=== PATIENT | female | born 1945 | race Caucasian/White ===

== ENCOUNTER 2016-09-21 04:10 | Inpatient (IN) ==
[2016-09-21] MEDS ORDERED: SODIUM CHLORIDE 0.9% 1,000 ML IV STA (04:22)
[2016-09-21] MEDS ORDERED: ENOXAPARIN 100 MG/ML SYRINGE SUBCUT STA (04:22)
[2016-09-21] MEDS ORDERED: ONDANSETRON 4 MG/2 ML VIAL IV STA (04:22)
[2016-09-21] MEDS ORDERED: MORPHINE 2 MG/1 ML SYRINGE IV STA (04:22)
[2016-09-21] MEDS ORDERED: ASPIRIN 325 MG TABLET PO STA (04:22)
[2016-09-21] MEDS ORDERED: NITROGLYCERIN 2% OINT 1 INCH/GM PACK TOP STA (04:22)
[2016-09-21] MEDS ORDERED: TICAGRELOR 90 MG TABLET ONE ×2 (04:48)
[2016-09-21] MEDS ORDERED: ENOXAPARIN 80 MG/0.8 ML SYRINGE SUBCUT ONE (04:50)
[2016-09-21] MEDS ORDERED: NITROGLYCERIN 2% OINT 1 INCH/GM PACK TOP ONE (04:50)
[2016-09-21] MEDS ORDERED: MORPHINE 2 MG/1 ML SYRINGE ONE (04:50)
[2016-09-21] MEDS ORDERED: ONDANSETRON 4 MG/2 ML VIAL ONE (04:50)
[2016-09-21] MEDS ORDERED: ENOXAPARIN 40 MG/0.4 ML SYRINGE ONE (04:51)
--- NOTE | 2016-09-21 04:51 | Emergency Department Note ---
Arrival - Arrival Chief Complaint: Chest Pain Stated Complaint: jaw pain, and under left arm is hurting ED Nursing Triage Note: Patient to triage. she states that last night before she went to bed that her left jaw was hurting. 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 Patient states when this happened she got really hot and was sweating. Mode of Arrival: Ambulatory Time Seen by Provider: 09/21/16 04:22 - History of Present Illness HPI Narrative: Patient presents complaining of chest pain which woke her this morning radiating into the left jaw. The patient also has some associated nausea with this. She states her mother and her father both had MIs. The patient's pain is a crushing pressure type pain. The pain in the jaw has gradually intensified on the left since onset of pain. The patient has no known heart problems. Allergies/Adverse Reactions: Allergies Allergy/AdvReac Type Severity Reaction Status Date / Time No Known Allergies Allergy Unverified 09/21/16 04:18 Review of System - Review of System 12 point system: reviewed and no additional remarkable complaints except as stated Medical,Surgical,& Family Hx - Medical History Cardio: No history of: Hypertension Endocrine: History of: Diabetes Mellitus (IDDM) - Family History Family History: Reports;: Family Diabetes (Everyone) - Social History Smoking Status: Never smoker Frequency of Alcohol Use: None Type of Drug Use: None Exam Physical Examination: General: Patient is well-developed and well-nourished with no acute distress noted. HEENT: The extraocular muscles are intact. Oropharynx is moist. There is no erythema or exudate. The tympanic membranes are shiny bilaterally. Neck: There is no adenopathy. Full range of motion is noted without pain. The trachea is midline. No JVD is present. Lungs: There is normal excursion of the chest with the lungs sounding clear bilaterally. No subcostal retractions are present. There is no point tenderness present. Heart: The heart has a regular rate and rhythm with no gallops or murmurs. Abdomen: The abdomen is nontender and nondistended with no rebound, guarding, or masses. Bowel sounds are normal. Back: The back demonstrates a normal appearance with no evidence of trauma. Genitourinary: Not examined. Extremities: The extremities demonstrate no clubbing, cyanosis, or edema. The visualized range of motion is normal. They appear atraumatic. Neuro: Cranial nerves II through XII are checked and intact. There is no focal motor or sensory deficit seen in the extremities. Skin: Skin is warm and dry with no evidence of rash. Vital Signs: Vital Signs Temperature 97.7 F 09/21/16 04:13 Pulse Rate 79 09/21/16 04:13 Respiratory Rate 10 L 09/21/16 04:13 Blood Pressure 134/87 09/21/16 04:13 O2 Sat by Pulse Oximetry 99 09/21/16 04:13 Course - Reevaluation(s) Reevaluation #1: Initial EKG performed at 420 demonstrated no changes. After I was talking to the patient in front of my eyes to monitor begin to show ST elevations I got a second EKG at 445 and this demonstrates inferior VT. This is in keeping with her very typical sounding anginal pain. Time: 04:51 - Consultations Consultation #1: Dr. Enrique was notified and will come see the patient. The labelling machine operator has been activated. Time: 04:51 Results - Labs CBC & BMP: 09/21/16 04:52 - Diagnostic Findings Procedure: Chest x-ray: image reviewed by me (No definite acute process. Old posterior right rib fracture incidentally noted) Disposition Clinical Impression: Acute inferior myocardial infarction Case discussed with: patient, patient's family Disposition: Disch To Home/Self Care Condition: Stable Time of Disposition: 04:52
[2016-09-21] MEDS ORDERED: ASPIRIN CHEW 81 MG TABLET PO STA (04:52)
[2016-09-21] MEDS ORDERED: HEPARIN 5,000 UNIT/1 ML VIAL IV ONE (04:52)
[2016-09-21] MEDS ORDERED: TICAGRELOR 90 MG TABLET PO STA (04:52)
[2016-09-21] MEDS ORDERED: ENOXAPARIN 30 MG/0.3 ML SYRINGE ONE (04:52)
[2016-09-21] MEDS ORDERED: ASPIRIN 325 MG TABLET ONE (04:59)
[2016-09-21] MEDS ORDERED: HEPARIN 5,000 UNIT/1 ML VIAL ONE ×2 (04:59→05:37)
[2016-09-21 05:04] LABS: Basophils % 0.3 % (0.0-0.8); Eosinophils # 0.2 10*3/uL (0.0-0.87); Eosinophils % 2.6 % (0.00-10.9); Hematocrit 38.9 VOL% (35.7-47.0); Immature Granulocytes % 0.5 %; Immature Granulocytes Absolute 0.05 #; Lymphocytes # 2.4 10*3/uL (1.4-4.0); Lymphocytes % 26.6 % (21.3-54.2); Mean Corpuscular HGB Conc 33.4 GM/DL (32-36); Mean Corpuscular Hemoglobin 32 PG (27-34); Mean Corpuscular Volume 94.2 FL (87-102); Mean Platelet Volume 11.3 FL (9.6-12.0); Monocytes # 0.8 10*3/uL (0.11-0.8); Monocytes % 8.9 % (1.7-12.7); Neutrophils # 5.6 10*3/uL (1.4-7.4); Neutrophils % 61.1 % (38.7-73.9); Platelet Count 226 T/CUMM (130-400); Red Blood Count 4.13 MC/CUMM (3.8-5.5); Red Cell Distribution Width 12.3 % (9.3-17.3); White Blood Count 9.1 T/CUMM (4-12)
[2016-09-21] MEDS: METOPROLOL TARTRATE 5 MG/5 ML VIAL IV SCH ×3 (05:05→05:15)
[2016-09-21] MEDS ORDERED: LIDOCAINE 1% 20 ML VIAL ONE (05:16)
[2016-09-21 05:24] LABS: D-Dimer 0.7 MG/L FEU; INR 0.9; PT Patient Result 9.5 SECS; Partial Thromboplastin Time 35.4 SECS (0-40)
[2016-09-21 05:25] LABS: Albumin 3.8 G/DL (3.4-5.0); Bilirubin,Total 0.9 MG/DL (0.2-1.0); Calcium 9.7 MG/DL (8.5-10.1); Magnesium 2.2 MG/DL (1.8-2.4); Osmolality,Calculated 291.4 MOS/KG (273-304); Potassium 3.7 MMOL/L (3.5-5.1); Total Protein 6.9 G/DL (6.4-8.3)
[2016-09-21] MEDS ORDERED: MIDAZOLAM 2 MG/2 ML VIAL ONE (05:32)
[2016-09-21] MEDS ORDERED: TIROFIBAN 5,000 MCG/100 ML PREMIX IV ONE (05:38)
[2016-09-21] MEDS ORDERED: TIROFIBAN 5,000 MCG/100 ML PREMIX IV SCH (05:51)
[2016-09-21] MEDS ORDERED: DEXTROSE 50% 25 GM/50 ML VIAL IV PRN (06:25)
[2016-09-21] MEDS ORDERED: MAGNESIUM SULF RIDER 4 GM in PREMIX 1 EACH IV PRN (06:25)
[2016-09-21] MEDS ORDERED: ACETAMINOPHEN 325 MG TABLET PO PRN (06:25)
[2016-09-21] MEDS ORDERED: ACETAMINOPHEN/CODEINE 300-30 MG TABLET PO PRN (06:25)
[2016-09-21] MEDS ORDERED: ZALEPLON 5 MG CAPSULE PO PRN (06:25)
[2016-09-21] MEDS ORDERED: GLUCAGON 1 MG VIAL IM PRN (06:25)
[2016-09-21] MEDS ORDERED: MAGNESIUM SULF RIDER 2 GM in PREMIX 1 EACH IV PRN (06:25)
[2016-09-21] MEDS: SODIUM CHLORIDE 0.9% 1,000 ML IV SCH ×2 (06:30→11:30)
--- NOTE | 2016-09-21 06:34 | History and Physical Update ---
Sedation H&P Update - History and Physical H&P was reviewed, the patient examined and there: are no changes in the patients condition since last H&P was completed. - Dictation Physical: refer to H&P completed by admitting physician - Physical Exam Mental Status: alert and oriented Heart: regular rate and rhythm Lung: clear to auscultation Abdomen: within normal limits Vitals: within normal limits - Sedation Plan for Sedation: minimal Patient Consent: Procedure disscussed with patient and patinet has consented., Risks and benefits were discussed with patient,including infection,, bleeding, injury to surrounding structures, seizure, temporary nerve, Patient understands and accepts potential risks/benefits and agrees to, proceed. ASA Class: II Airway Assessment: Class II: Soft palate, uvula, fauces visible
--- NOTE | 2016-09-21 06:34 | Cardiology History & Physical ---
Assessment and Plan - Time spent with patient Time spent with patient: Greater than 30 minutes (1) ST elevation myocardial infarction (STEMI) of inferior wall Status: Acute Assessment and plan: ER has given aspirin she comes 325 mg; heparin 4400 units, Lovenox 70 mg subcu, Brilinta 180 mg p.o. Emergently go to the Gyn Physician for left heart cath and possible PTCA or stent. Left heart cath and possible PTCA or stent were discussed with the patient. The risk of the procedure include but are not limited to a small risk of injury to the vessel, abnormal heart rhythm, stroke, heart attack, need for emergent surgery, contrast reaction, restenosis, or . The patient voices understanding, agrees with the plan, and desires to proceed with the heart catheterization. After the cath will check lipids and treat per guidelines. We will try to add a beta-fam and SILVESTRE inhibitor, if not contraindicated and she is not already on these. Current Visit: Yes (2) Diabetes Status: Acute Current Visit: Yes (3) Chronic renal insufficiency, stage II (mild) Status: Acute Current Visit: Yes (4) Hypertension Status: Acute Current Visit: Yes (5) Right rotator cuff tear Status: Acute Current Visit: Yes (6) Blood in stool Status: Acute Current Visit: Yes History of Present Illness Chief complaint: "I hurt my jaw and the left arm and the chest" times greater than an hour History of present illness: Ms. 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 She does have a strong family history coronary artery disease. She, late last night, early this morning began having left jaw and left inner arm and left chest pain. It persisted. She came to the emergency room. She was seen. Initially her EKG was normal. However, as her pain continued, the ER doctor noted on the monitor that she had ST elevation. Repeat EKG was done and she had an inferior ST elevation MT. The cath team was called for an inferior STEMI. She does not have exertional chest pain prior to this visit. No orthopnea, PND, edema, palpitations, syncope, cough, wheezing, or phlegm. Past medical history: Diabetes, hypertension Has had some blood in her stool, thinks it is a hemorrhoid. Her right shoulder has had a tear in her rotator cuff. It was diagnosed by MRI by Dr. Gail Schneider. She is being referred to Dr. Reyes. She is not interested in surgery very soon. soc hx--Does not smoke cigarettes or drink alcohol There is a family history of coronary disease in 2 brothers and a father. Also some diabetes. SPH, no, yes, yes and yes[prompted, good person]. Review of systems is remarkable for occasional blood in the stools. She has been seen by her housekeeper and laundry assistant for her eyes. They are okay. Because of a mild rising creatinine/reduced renal function, she is now off metformin. Initially her diabetes was more difficult to control. Now she is on insulin and is under better control. Allergies Allergy/AdvReac Type Severity Reaction Status Date / Time No Known Allergies Allergy Unverified 09/21/16 04:18 12 point system: reviewed and no additional remarkable complaints except as stated (A 12 point review of systems is negative except for as mentioned in HPI. ) Medical,Surgical,& Family Hx - Medical History Cardio: History of: Hypertension Endocrine: History of: Diabetes Mellitus (IDDM) - Family History Family History: Reports;: Family Diabetes (Everyone), Family Heart Disease - Social History Smoking Status: Never smoker Frequency of Alcohol Use: None Type of Drug Use: None Functional capacity: independent ambulation Cardiology Physical Exam - Constitutional Vitals: Vital Signs Temp Pulse Resp BP Pulse Ox 97.7 F 70 18 110/70 99 09/21/16 04:13 09/21/16 05:16 09/21/16 05:16 09/21/16 05:16 09/21/16 04:13 Intake and Output 09/20/16 09/20/16 09/21/16 15:59 23:59 07:59 Other: Weight 73.482 kg Patient Weight 09/21/16 23:59 Weight 73.482 kg Exam: HEENT: Pupils equal, reactive to light and accommodation Neck: NoJVD or bruit Lungs clear to auscultation Heart: Regular rhythm rate with normal S1 and S2. Apical S4 Abdomen: No hepatosplenomegaly Spine/extremities: No clubbing, cyanosis, or edema Neuro: Nonfocal Psych: No depression or anxiety Femoral pulses are 3-4+. Foot pulses are 2+. Result/EKG - Labs CBC & BMP: 09/21/16 04:52 09/21/16 04:52 Lab Results: I have reviewed the past 24 hour labs Labs: Laboratory Results - last 24 hr 09/21/16 09/21/16 09/21/16 04:52 04:52 04:52 WBC 9.1 RBC 4.13 Hgb 13.0 Hct 38.9 MCV 94.2 MCH 32 MCHC 33.4 RDW 12.3 Plt Count 226 MPV 11.3 Neut % (Auto) 61.1 Lymph % (Auto) 26.6 [place] % (Auto) 8.9 Eos % (Auto) 2.6 Baso % (Auto) 0.3 Neut # (Auto) 5.6 Lymph # (Auto) 2.4 [place] # (Auto) 0.8 Eos # (Auto) 0.2 Baso # (Auto) 0.0 Immature Gran % 0.5 Nucleated RBC % 0.0 Immature Gran # 0.05 Nucleated RBCs # 0.00 INR 0.9 PT Patient/Control Mix 9.5 D-Dimer, Quantitative 0.7 Circ Anticoag PTT 35.4 Sodium 140 Potassium 3.7 Chloride 106 Carbon Dioxide 22 Anion Gap 15.7 H BUN 25 H Creatinine 1.10 H GFR Calculation 51 BUN/Creatinine Ratio 22.00 H Glucose 267 H Calculated Osmolality 291.4 Calcium 9.7 Magnesium 2.2 Total Bilirubin 0.90 AST 38 H ALT 63 H Alkaline Phosphatase 125 H Total Protein 6.9 Albumin 3.8 Globulin 3.1 Albumin/Globulin Ratio 1.2 Lipase 348.0 - Diagnostic Findings Procedure: Chest x-ray: report reviewed by me - EKG EKG results: interpreted by me Quality Measures - VTE Contraindication to Pharmacological VTE Prophylaxis: High Risk of Bleeding
--- NOTE | 2016-09-21 06:37 | Operative Note ---
Date of procedure: 09/21/16 Procedure Preformed: Left heart cath Coronary angiography Left ventriculography Angiogram of the right femoral artery--done from the follow-through from the LV gram Aggrastat bolus and infusion Stent of the right coronary [id number]-aqqs-trrypdk stent, 3.0 x 23 mm Zions Alpine , after pre-dilating with a 2.0 x 15 mm NC trek Loading with Brilinta, 180 mg p.o.--done in the emergency room Angio-Seal of the right femoral artery-successful Surgeon / Physician: Damir Enrique Data Analysis Intern: Leila Young Post-op diagnosis: same (Inferior ST elevation [place], diabetes, hypertension) Findings: Impression: Subtotal stenosis, 95%, of the mid right coronary with FLAVIA grade II flow-the infarct related artery-with a trailing intracoronary thrombus Significant disease in a small diagonal of the LAD Otherwise mild disease in vessels Status post successful stent of the mid right coronary artery--drug-eluting stent, 3.0 x 23 mm Zions Alpine, after pre-dilating with a 2.0 x 15 mm NC trek Low normal global systolic function, LVEF is 50-55% Inferobasal minimal hypokinesis Moderate elevation of LVEDP, 26 mmHg Loading with Brilinta, 180 mg-done in the emergency room Aggrastat bolus and infusion-done for ACS/STEMI Angio-Seal right femoral artery-successful Plan/recommendations: The patient will have risk factors optimized. The patient will be on antiplatelet medications to include aspirin indefinitely and Plavix or Brilinta for at least a year. I will check lipids and treat per guidelines. I will add a low-dose of carvedilol, beta-fam, post [place]. Currently, her blood pressure is low enough and there is a question of renal dysfunction it we will hold on SILVESTRE inhibitor. It may be started later. Follow- up will be scheduled. Addenda: I saw the patient post-cath. the groin puncture site and distal pulse are stable. vital signs are stable and the patient will be observed closely overnight. Specimens: none sent Estimated blood loss: minimal Condition: other (Guarded) Anesthesia: local, conscious sedation Disposition: ICU
--- NOTE | 2016-09-21 07:04 | Cardiology Operative Report ---
Date of Procedure:: 09/21/16 Post-op diagnosis: same (Inferior ST elevation [place], diabetes, hypertension) Procedure: Date of procedure: 09/21/16 Procedure Preformed: Left heart cath Coronary angiography Left ventriculography Angiogram of the right femoral artery--done from the follow-through from the LV gram Aggrastat bolus and infusion Stent of the right coronary fgewzy-mofb-quppdpa stent, 3.0 x 23 mm Zions Alpine , after pre-dilating with a 2.0 x 15 mm NC trek Loading with Brilinta, 180 mg p.o.--done in the emergency room Angio-Seal of the right femoral artery-successful Surgeon / Physician: Damir Enrique Operations Specialists: Leila Young Post-op diagnosis: same (Inferior ST elevation [place], diabetes, hypertension) procedure: The patient was prepped and draped in usual manner. Entered the right femoral artery via the Seldinger technique. I used a sheath and then used a JL4 and engaged left coronary. Multiple views were taken. I then exchanged for a JR4. Multiple views of the right coronary were taken. The patient then underwent stenting of the right coronary-see intervention below. Aggrastat bolus and infusion was given . I then exchanged for an angled pigtail. I crossed the valve. Left ventricular end-diastolic pressures measured. Left ventriculography was done. Left ventricle pullback was done. The catheters were then removed from the patient. Please see the data sheets for the details of catheters used. Intervention: Cardiovascular surgery was available for any complications. The coronary intervention was done using a JR4 guiding catheter, 0.014 run through wire,, After predilatation with a 2.0 x 15 mm NC trek balloon, I then placed a 3.0 x 28 mm Zions Alpine coronary stent across the lesion. It was deployed. Angiogram of the artery after intervention was done. There was a good result.. Angiogram of the right femoral artery was done, as a follow-through from the aortogram/left ventriculogram. Angio-Seal was done. Patient was transferred to her room in ICU in satisfactory condition. Please see the cath report for details of the pressures and times. Complications: none Hemodynamic data: LVEDP was 26 mmHg. Angiographic data: The left main coronary was large and had minimal luminal irregularities. The left anterior descending artery was large. There is one major diagonal. That small diagonal had a 70% to 90% ostial narrowing. Otherwise, there are minimal luminal irregularities. The left circumflex system was moderate to large. It was 1 major obtuse marginal and 1 posterior lateral branches. there are minimal luminal irregularities in the circumflex The right coronary artery was large in size, dominant vessel with the PDA. There was a moderate sized post lateral branch. In the midportion, there was a 95% narrowing with a trailing intraluminal thrombus. There is FLAVIA grade II flow to that vessel. Otherwise, there was mild disease distal to that site, no more than 20% narrowing at one site. otherwise there were minimal luminal irregularities. After the intervention of the right coronary, with the PTCA, the thrombus is gone and there is no suggestion of distal embolization. There was a residual lesion. After placement of the stent there was a 0% residual and FLAVIA grade III flow. RODNEY left ventriculography revealed mildly reduced global/regional left ventricular systolic function. Overall ejection fraction was 50-55 %. There is no significant mitral regurgitation. Angiogram of the right femoral artery revealed the puncture site to be in a large vessel, above the bifurcation. It was suitable for Angio-Seal. Findings: Impression: Subtotal stenosis, 95%, of the mid right coronary with FLAVIA grade II flow-the infarct related artery-with a trailing intracoronary thrombus Significant disease in a small diagonal of the LAD Otherwise mild disease in vessels Status post successful stent of the mid right coronary artery--drug-eluting stent, 3.0 x 23 mm Yanci Solis, after pre-dilating with a 2.0 x 15 mm NC trek Low normal global systolic function, LVEF is 50-55% Inferobasal minimal hypokinesis Moderate elevation of LVEDP, 26 mmHg Loading with Brilinta, 180 mg-done in the emergency room Aggrastat bolus and infusion-done for ACS/STEMI Angio-Seal right femoral artery-successful Plan/recommendations: The patient will have risk factors optimized. The patient will be on antiplatelet medications to include aspirin indefinitely and Plavix or Brilinta for at least a year. I will check lipids and treat per guidelines. I will add a low-dose of carvedilol, beta-fam, post [place]. Currently, her blood pressure is low enough and there is a question of renal dysfunction it we will hold on SILVESTRE inhibitor. It may be started later. Follow- up will be scheduled. Addenda: I saw the patient post-cath. the groin puncture site and distal pulse are stable. vital signs are stable and the patient will be observed closely overnight. Specimens: none sent Estimated blood loss: minimal Condition: other (Guarded) Anesthesia: local, conscious sedation Disposition: ICU Additional CC's: Damir Tian Anesthesia: local, minimal conscious sedation Surgeon / Physician: Damir Enrique Operations Specialists: other Estimated blood loss: minimal Specimens: none sent Condition: other (Guarded) Disposition: ICU/CCU
[2016-09-21 07:22] LABS: Risk Ratio 3.25; VLDL CHOLESTEROL 36.6 MG/DL
[2016-09-21 07:32] LABS: Troponin I Only 0.034 NG/ML (0.00-0.045)
--- NOTE | 2016-09-21 08:15 | XRay Report ---
Portable chest. Indication: Chest pain. No prior study. The heart is normal in size. Calcified lymph nodes are seen in the left hilum. There is elevation of the left hemidiaphragm. There is mild atelectasis in the left lung base. The pulmonary vasculature is normal. There is mild fibrotic change noted bilaterally. There is a healed rib fracture on the right. Mild degenerative changes of the spinal column. Impression: Chronic lung changes. Left basilar atelectasis. PROCEDURE INTERPRETED AT [facility] DEPARTMENT OF RADIOLOGY Final Report Signed by: Dr. Sugey Castro
[2016-09-21] MEDS: ASPIRIN CHEW 81 MG TABLET PO SCH (09:07)
[2016-09-21] MEDS: TICAGRELOR 90 MG TABLET PO SCH ×2 (09:07→21:17)
[2016-09-21] MEDS: CARVEDILOL 3.125 MG TABLET PO SCH ×3 (09:07→20:53)
[2016-09-21] MEDS: INSULIN REGULAR 100 UNIT/ML SUBCUT SCH ×4 (09:08→20:53)
--- NOTE | 2016-09-21 10:08 | EKG Report ---
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
[2016-09-21] MEDS: DOBUTamine 500 MG/250 ML PREMIX IV SCH (16:46)
[2016-09-21 17:09] LABS: CKMB % 13.9 %
[2016-09-21 17:11] LABS: Troponin I Only 33.9 NG/ML (0.00-0.045)
--- NOTE | 2016-09-21 18:25 | EKG Report ---
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
[2016-09-22 00:25] LABS: Troponin I Only 23.5 NG/ML (0.00-0.045)
[2016-09-22] MEDS: CARVEDILOL 3.125 MG TABLET PO SCH ×4 (02:48→20:26)
[2016-09-22 05:31] LABS: Basophils % 0.2 % (0.0-0.8); Eosinophils # 0.1 10*3/uL (0.0-0.87); Eosinophils % 0.7 % (0.00-10.9); Hematocrit 32.4 VOL% (35.7-47.0); Immature Granulocytes % 0.3 %; Immature Granulocytes Absolute 0.03 #; Lymphocytes # 1.4 10*3/uL (1.4-4.0); Mean Corpuscular Hemoglobin 31 PG (27-34); Mean Platelet Volume 11.4 FL (9.6-12.0); Monocytes # 0.9 10*3/uL (0.11-0.8); Monocytes % 9.8 % (1.7-12.7); Neutrophils # 6.3 10*3/uL (1.4-7.4); Platelet Count 198 T/CUMM (130-400); Red Blood Count 3.52 MC/CUMM (3.8-5.5); Red Cell Distribution Width 12.7 % (9.3-17.3); White Blood Count 8.6 T/CUMM (4-12)
[2016-09-22 06:15] LABS: Calcium 8.5 MG/DL (8.5-10.1); Potassium 3.8 MMOL/L (3.5-5.1); Total Protein 5.6 G/DL (6.4-8.3)
--- NOTE | 2016-09-22 07:39 | EKG Report ---
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
[2016-09-22] MEDS: INSULIN REGULAR 100 UNIT/ML SUBCUT SCH ×4 (09:30→21:03)
[2016-09-22] MEDS: ASPIRIN CHEW 81 MG TABLET PO SCH (10:06)
[2016-09-22] MEDS: TICAGRELOR 90 MG TABLET PO SCH ×2 (10:06→21:00)
--- NOTE | 2016-09-22 18:25 | Cardiology Progress Note ---
Donell, Rosario Olmos RN, am scribing for, and in the presence of, Damir Enrique MD 18:22. Assessment and Plan - Time spent with patient Time spent with patient: Greater than 30 minutes (1) ST elevation myocardial infarction (STEMI) of inferior wall Status: Acute Assessment and plan: 71 year old female with PMHx including HTN, diabetes, hyperlipidemia presented with acute inferior ST elevation LA. Now s/p emergent successful PCI of 95% mid right coronary artery occlusion. At time of cath, also was noticed to have an diagonal small vessel with 70-90% ostial narrowing. Otherwise minimal luminal irregularities. Preserved EF with ejection fraction 50-55%. Without acute event overnight. No ectopy, sustained arrhythmia. Some hypotension, BP supported with low dose IV dobutamine. September 21, 2016: Plan/recommendations: The patient will have risk factors optimized. The patient will be on antiplatelet medications to include aspirin indefinitely and Plavix or Brilinta for at least a year. I will check lipids and treat per guidelines. I will add a low-dose of carvedilol, beta-fam, post LA. Currently, her blood pressure is low enough and there is a question of renal dysfunction it we will hold on SILVESTRE inhibitor. It may be started later. Follow- up will be scheduled. Addenda: I saw the patient post-cath. the groin puncture site and distal pulse are stable. vital signs are stable and the patient will be observed closely overnight. September 22, 2016 Plan/recommendation: the patient has had no more chest pain. Her blood pressure was borderline low so started on dobutamine. She probably has some RV infarction. Try to taper her off of dobutamine today, but her blood pressure is trending downward. Will restart the dobutamine, keep her in ICU, and give her normal saline at 150 cc an hour for 2 L. Possibly give her some fluids can overcome the RV infarct/hypotension. She has good LV function. I will restart some of her diabetes medicines. I check her lipids. Her LDL is mildly elevated but may be in from missing a dose or 2 of the atorvastatin. Will restart the atorvastatin at 40 mg p.o. nightly.. Would not use an SILVESTRE inhibitor at this point because of her hypotension. I conferred care with her nurse. Creatinine is okay post contrast. 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 Mcnamara observed closely in ICU overnight. She is s/p acute inferior ST elevation LA yesterday morning 09/21/16. Underwent emergent left heart catheterization with successful PCI of 95% stenosis of mid RCA using 3.0 x 23 mm Xience Alpine drug eluting stent. LV EF 50-55% with minimal inferoapical hypokinesis at time of cath. Borderline hypotension yesterday afternoon. IV Dobutamine infusion started, titrated down to 3 mcgs/kg/min this morning. SBP with some improvement this morning, ranging 105-115 mmHg. Sinus rhythm with HR 60s, no ectopy or overt arrhythmia. Some bradycardia, pulse mid to upper 50s. Labs reviewed. Troponin and CPK peaked yesterday afternoon at 33.9 & 503 respectively, and last biomarker levels with troponin 23.5 and CPK 401. Renal function is stable today with a creatinine of 1.0 noted. Awake and alert this morning. No CP, SOB overnight. Admits to some light nausea with no vomiting. Contributes nausea to not being able to eat with bedrest/NPO diet. RFA dsg removed and groin is soft with minimal bruising. No hematoma or femoral bruit appreciated. Distal pulses are present and palpable bilaterally. Instructed patient on groin precautions, and she verbalized understanding. Diet ordered this morning. Continue to observe closely in ICU. Exam (Progress Note) - Constitutional Vitals: Period Temp Pulse Resp BP Sys/Jade Pulse Ox Last 24 Hr 97.2 F-98.9 F 54-73 12-22 80-115/43-58 94-100 Exam: HEENT: Pupils equal, reactive to light and accommodation Neck: NoJVD or bruit. No tenderness or mass. Lungs clear to auscultation. No rhonchi, stridor, wheeze. Heart: Regular rhythm rate with normal S1 and S2. Apical S4. No irregular rhythm, murmur. Abdomen: Soft, nontender, hypoactive bowel sounds. No tenderness, firm, guarding , distended Spine/extremities: No clubbing, cyanosis, or edema. RFA cath site with minimal bruising, no hematoma or bruit present. Neuro: Nonfocal. Awake and alert. Psych: No depression or anxiety Femoral pulses are 3-4+. Dorsalis pedis and posterior tibial pulses 2+. Result/EKG - Labs CBC & BMP: 09/22/16 05:09 09/22/16 05:09 Lab Results: I have reviewed the past 24 hour labs Labs: Laboratory Results - last 24 hr 09/21/16 09/21/16 09/21/16 11:53 15:22 15:51 WBC RBC Hgb Hct MCV MCH MCHC RDW Plt Count MPV Neut % (Auto) Lymph % (Auto) [place] % (Auto) Eos % (Auto) Baso % (Auto) Neut # (Auto) Lymph # (Auto) [place] # (Auto) Eos # (Auto) Baso # (Auto) Immature Gran % Nucleated RBC % Immature Gran # Nucleated RBCs # Sodium Potassium Chloride Carbon Dioxide Anion Gap BUN Creatinine GFR Calculation BUN/Creatinine Ratio Glucose POC Glucose 152 H 127 H Calculated Osmolality Calcium Total Bilirubin AST ALT Alkaline Phosphatase Total Creatine Kinase 503 H D CK-MB (CK-2) 70.0 H D CK and CKMB Interp 13.9 Troponin I 33.900 H D Total Protein Albumin Globulin Albumin/Globulin Ratio 09/21/16 09/21/16 09/22/16 20:00 23:32 05:09 WBC 8.6 RBC 3.52 L Hgb 11.0 L D Hct 32.4 L MCV 92.0 MCH 31 MCHC 34.0 RDW 12.7 Plt Count 198 MPV 11.4 Neut % (Auto) 73.0 Lymph % (Auto) 16.0 L [place] % (Auto) 9.8 Eos % (Auto) 0.7 Baso % (Auto) 0.2 Neut # (Auto) 6.3 Lymph # (Auto) 1.4 [place] # (Auto) 0.9 H Eos # (Auto) 0.1 Baso # (Auto) 0.0 Immature Gran % 0.3 Nucleated RBC % 0.0 Immature Gran # 0.03 Nucleated RBCs # 0.00 Sodium Potassium Chloride Carbon Dioxide Anion Gap BUN Creatinine GFR Calculation BUN/Creatinine Ratio Glucose POC Glucose 101 Calculated Osmolality Calcium Total Bilirubin AST ALT Alkaline Phosphatase Total Creatine Kinase 401 H D CK-MB (CK-2) 40.0 H D CK and CKMB Interp 10.0 Troponin I 23.500 H D Total Protein Albumin Globulin Albumin/Globulin Ratio 09/22/16 05:09 WBC RBC Hgb Hct MCV MCH MCHC RDW Plt Count MPV Neut % (Auto) Lymph % (Auto) [place] % (Auto) Eos % (Auto) Baso % (Auto) Neut # (Auto) Lymph # (Auto) [place] # (Auto) Eos # (Auto) Baso # (Auto) Immature Gran % Nucleated RBC % Immature Gran # Nucleated RBCs # Sodium 143 Potassium 3.8 Chloride 110 H Carbon Dioxide 23 Anion Gap 13.8 BUN 13 Creatinine 1.00 GFR Calculation 58 BUN/Creatinine Ratio 13.00 Glucose 168 H POC Glucose Calculated Osmolality 288.0 Calcium 8.5 Total Bilirubin 2.00 H AST 111 H ALT 55 Alkaline Phosphatase 111 Total Creatine Kinase CK-MB (CK-2) CK and CKMB Interp Troponin I Total Protein 5.6 L Albumin 3.0 L Globulin 2.6 Albumin/Globulin Ratio 1.1 - EKG EKG results: interpreted by me EKG shows: sinus rhythm Quality Measures - VTE Contraindication to Pharmacological VTE Prophylaxis: High Risk of Bleeding IKlaus Dale, MD, personally performed the services described in this documentation, ascribed by Rosario Olmos RN in my presence, and it is both accurate and complete 822 .
[2016-09-22] MEDS: SODIUM CHLORIDE 0.9% 1,000 ML IV SCH (18:35)
[2016-09-22] MEDS: DOBUTamine 500 MG/250 ML PREMIX IV SCH (20:53)
[2016-09-22] MEDS: OMEGA 3 ACID ETHYL ESTERS 1 GM CAPSULE PO SCH (21:00)
[2016-09-23] MEDS: SODIUM CHLORIDE 0.9% 1,000 ML IV SCH ×4 (01:36→21:09)
[2016-09-23] MEDS: CARVEDILOL 3.125 MG TABLET PO SCH ×2 (01:37→09:51)
[2016-09-23 02:24] LABS: Basophils % 0.1 % (0.0-0.8); Eosinophils # 0.2 10*3/uL (0.0-0.87); Eosinophils % 2.3 % (0.00-10.9); Hematocrit 32.7 VOL% (35.7-47.0); Hemoglobin 10.8 GM/DL (12.0-16.0); Immature Granulocytes % 0.5 %; Immature Granulocytes Absolute 0.04 #; Lymphocytes # 1.4 10*3/uL (1.4-4.0); Lymphocytes % 17.9 % (21.3-54.2); Mean Corpuscular Hemoglobin 31 PG (27-34); Mean Corpuscular Volume 95.1 FL (87-102); Mean Platelet Volume 11.6 FL (9.6-12.0); Monocytes # 0.9 10*3/uL (0.11-0.8); Monocytes % 11.5 % (1.7-12.7); Neutrophils # 5.1 10*3/uL (1.4-7.4); Neutrophils % 67.7 % (38.7-73.9); Platelet Count 188 T/CUMM (130-400); Red Blood Count 3.44 MC/CUMM (3.8-5.5); Red Cell Distribution Width 12.4 % (9.3-17.3); White Blood Count 7.6 T/CUMM (4-12)
[2016-09-23 03:09] LABS: Albumin 3.1 G/DL (3.4-5.0); Bilirubin,Total 1.8 MG/DL (0.2-1.0); Calcium 8.5 MG/DL (8.5-10.1); Osmolality,Calculated 288.7 MOS/KG (273-304); Potassium 3.8 MMOL/L (3.5-5.1); Total Protein 5.8 G/DL (6.4-8.3)
[2016-09-23] MEDS ORDERED: ATORVASTATIN 40 MG TABLET PO SCH (09:00)
--- NOTE | 2016-09-23 09:20 | Cardiology Progress Note ---
Addendum entered and electronically signed by Tess Collins NP 09/23/16 11: 27: ADDENDUM: LV gram per cardiac catheterization reveals normal EF. Given her continued hypotension, I will order an echocardiogram for this morning. Original Note: Assessment and Plan - Time spent with patient Time spent with patient: Greater than 30 minutes (1) Hypotension Status: Acute Assessment and plan: SEE PLAN OF CARE LISTED BELOW Current Visit: Yes (2) Dyslipidemia Status: Chronic Assessment and plan: SEE PLAN OF CARE LISTED BELOW Current Visit: Yes (3) Elevated LFTs Status: Acute Assessment and plan: SEE PLAN OF CARE LISTED BELOW Current Visit: Yes (4) ST elevation myocardial infarction (STEMI) of inferior wall Status: Resolved Assessment and plan: SEE PLAN OF CARE LISTED BELOW Current Visit: Yes (5) Diabetes Status: Chronic Current Visit: Yes (6) Hypertension Status: Chronic Assessment and plan: SEE PLAN OF CARE LISTED BELOW Current Visit: Yes Cardiology - PN: Subj Interval history: 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 SIOBHAN CROSS Ms. Welch, 71-year-old female, presented to the emergency department September 21, 2016 with inferior STEMI. She underwent emergent cardiac catheterization performed by Dr. Enrique with the following noted: Findings: Impression: Subtotal stenosis, 95%, of the mid right coronary with FLAVIA grade II flow-the infarct related artery-with a trailing intracoronary thrombus Significant disease in a small diagonal of the LAD Otherwise mild disease in vessels Status post successful stent of the mid right coronary artery--drug-eluting stent, 3.0 x 23 mm Zions Alpine, after pre-dilating with a 2.0 x 15 mm NC trek Low normal global systolic function, LVEF is 50-55% Inferobasal minimal hypokinesis Moderate elevation of LVEDP, 26 mmHg Plan/recommendations: The patient will have risk factors optimized. The patient will be on antiplatelet medications to include aspirin indefinitely and Plavix or Brilinta for at least a year. Continue to treat lipids accordingly. DAY 2: SEPTEMBER 22, 2016: Plan/recommendation: the patient has had no more chest pain. Her blood pressure was borderline low so started on dobutamine. She probably has some RV infarction. Try to taper her off of dobutamine today, but her blood pressure is trending downward. Will restart the dobutamine, keep her in ICU, and give her normal saline at 150 cc an hour for 2 L. Possibly give her some fluids can overcome the RV infarct/hypotension. She has good LV function. I will restart some of her diabetes medicines. I check her lipids. Her LDL is mildly elevated but may be in from missing a dose or 2 of the atorvastatin. Will restart the atorvastatin at 40 mg p.o. nightly.. Would not use an SILVESTRE inhibitor at this point because of her hypotension. I conferred care with her nurse. Creatinine is okay post contrast. DAY 3: SEPTEMBER 23, 2016: Overnight, patient has continued to require IV hydration. Pressors have been off intermittently and systolic blood pressures averaging 99-108 this morning. Beta-fam and SILVESTRE inhibitors have obviously been held due to hypotension. LDL is 117. Patient's total bilirubin and AST are somewhat elevated and will hold the atorvastatin for a few days and restart as her enzymes continue to dwindle down. Creatinine 0.9. Patient tells me she has been up to the bedside commode and felt good during the night. At this point, will try to keep her pressors off, continue IV resuscitation (RCA infarct) and consider transferring to the floor this afternoon if her systolic blood pressure can be maintained at greater than 100 mmHg. Hopefully, patient may be eligible for discharge Monday or Monday. ASSESSMENT/PLAN: 1. INFERIOR STEMI -troponins have decreased. Continue with aspirin, Brilinta. Unable to introduce beta-fam or SILVESTRE inhibitor at this time due to hypotension. Will hold atorvastatin for a few days and continue to monitor her LFTs. Continue omega-3 orally twice daily. 2. HYPOTENSION -we will stop pressors and continue with IV hydration and monitor blood pressure. See plan of care listed above 3. DYSLIPIDEMIA -LDL elevated. At this point, holding atorvastatin and can reincorporate at a later date 4. DIABETES -continue sliding scale insulin 5. UNDERLYING HYPERTENSION -hypotension at this point 6. ELEVATED LFTS -suspect related to acute hypoperfusion with STEMI, labs improving. Continue to follow closely. LFT in a.m. Exam (Progress Note) - Constitutional Vitals: Period Temp Pulse Resp BP Sys/Jade Pulse Ox Last 24 Hr 97.8 F-98.4 F 64-98 12-21 89-124/47-82 92-100 Exam: General: [Appears well with no apparent distress.] [Pleasant and cooperative. ] [Appears comfortable.] HEENT: [PERRL, normocephalic, atraumatic. Mucous membranes moist. No jaundice noted. Conjunctiva moist and clear, sclerae anicteric] Neck: No JVD/HJR, no thyromegaly or lymphadenopathy noted. No carotid bruit appreciated Cardiac: [Regular rate and rhythm.] [No murmur rub or gallop.] Lungs: [Clear to auscultation without accessory muscle use to assist the respiratory pattern.] Not requiring oxygen Abdomen: Soft, bowel sounds normoactive. Nontender and nondistended. No abdominal bruit or thrill noted. No masses noted. Musculoskeletal: No fluid collection. Decreased range of motion is noted. Extremities: Right groin free of hematoma or bruit. Moderate amount of ecchymosis noted. No clubbing, cyanosis noted. [ No edema noted.] Upper extremity pulses 2+. Lower extremity pulses 2+. Capillary refill less than 3 seconds. Skin: No unusual lesions or rashes. No skin breakdown appreciated. Neuro: Awake, alert and oriented 3. Moves all extremities well without hemiparesis or paralysis. No essential tremor is appreciated. Result/EKG - Labs CBC & BMP: 09/23/16 01:03 09/23/16 01:03 Lab Results: I have reviewed the past 24 hour labs Labs: Laboratory Results - last 24 hr 09/22/16 09/22/16 09/22/16 12:45 16:37 20:19 WBC RBC Hgb Hct MCV MCH MCHC RDW Plt Count MPV Neut % (Auto) Lymph % (Auto) [place] % (Auto) Eos % (Auto) Baso % (Auto) Neut # (Auto) Lymph # (Auto) [place] # (Auto) Eos # (Auto) Baso # (Auto) Immature Gran % Nucleated RBC % Immature Gran # Nucleated RBCs # Sodium Potassium Chloride Carbon Dioxide Anion Gap BUN Creatinine GFR Calculation BUN/Creatinine Ratio Glucose POC Glucose 231 H 158 H 254 H Calculated Osmolality Calcium Total Bilirubin AST ALT Alkaline Phosphatase Total Protein Albumin Globulin Albumin/Globulin Ratio 09/23/16 09/23/16 01:03 01:03 WBC 7.6 RBC 3.44 L Hgb 10.8 L Hct 32.7 L MCV 95.1 MCH 31 MCHC 33.0 RDW 12.4 Plt Count 188 MPV 11.6 Neut % (Auto) 67.7 Lymph % (Auto) 17.9 L [place] % (Auto) 11.5 Eos % (Auto) 2.3 Baso % (Auto) 0.1 Neut # (Auto) 5.1 Lymph # (Auto) 1.4 [place] # (Auto) 0.9 H Eos # (Auto) 0.2 Baso # (Auto) 0.0 Immature Gran % 0.5 Nucleated RBC % 0.0 Immature Gran # 0.04 Nucleated RBCs # 0.00 Sodium 145 Potassium 3.8 Chloride 111 H Carbon Dioxide 26 Anion Gap 11.8 BUN 14 Creatinine 0.90 GFR Calculation 65 BUN/Creatinine Ratio 15.00 Glucose 101 POC Glucose Calculated Osmolality 288.7 Calcium 8.5 Total Bilirubin 1.80 H AST 74 H ALT 45 Alkaline Phosphatase 104 Total Protein 5.8 L Albumin 3.1 L Globulin 2.7 Albumin/Globulin Ratio 1.1 - Diagnostic Findings Procedure: Chest x-ray: report reviewed by me - EKG EKG results: interpreted by me EKG shows: sinus rhythm Quality Measures - VTE Contraindication to Pharmacological VTE Prophylaxis: High Risk of Bleeding
[2016-09-23] MEDS: INSULIN REGULAR 100 UNIT/ML SUBCUT SCH ×4 (09:51→21:09)
[2016-09-23] MEDS: OMEGA 3 ACID ETHYL ESTERS 1 GM CAPSULE PO SCH ×2 (09:52→21:09)
[2016-09-23] MEDS: TICAGRELOR 90 MG TABLET PO SCH ×2 (09:52→21:09)
[2016-09-23] MEDS: ASPIRIN CHEW 81 MG TABLET PO SCH (09:52)
[2016-09-23] MEDS: DOBUTamine 500 MG/250 ML PREMIX IV SCH (16:25)
--- NOTE | 2016-09-23 17:38 | ECHO Report ---
Basia Mcnamara Exam Date: 09/23/2016 12:35 Referring Physician: Technologist: Diann Spain RDCS Age: 71 Ht (in): 62 Wt (lb): 159 Gender: F Exam Location: [facility] Echo Indications: Chest pain, Hypotension, hx HTN, ST elevation (STEMI) myocardial infarction of unspecified site, IDDM BP: 99 / 63 HR: 81 Rhythm: Sinus Technical Quality: Good IMPRESSIONS Left ventricular ejection fraction is estimated at 55 %. Mildly increased right ventricular size. Normal right ventricular systolic function. Moderately increased right atrial size. Moderately increased left atrial size. Mild mitral valve regurgitation. Aortic valve sclerosis without stenosis or regurgitation. Trace to mild tricuspid valve regurgitation. Tricuspid regurgitation velocities suggest a PAP of 46 mmHg. MEASUREMENTS (Male / Female) Normal Values 2D ECHO LV Diastolic Diameter PLAX 4.2 cm 4.2 - 5.9 / 3.9 - 5.3 cm LV Systolic Diameter PLAX 3.7 cm LV Fractional Shortening PLAX 13.3 % IVS Diastolic Thickness 1.0 cm 0.6 - 1.0 / 0.6 - 0.9 cm LVPW Diastolic Thickness 1.0 cm 0.6 - 1.0 / 0.6 - 0.9 cm RV Internal Dim ED PLAX 2.6 cm Aortic Root Diameter 2.8 cm LA Systolic Diameter LX 3.6 cm 3.0 - 4.0 / 2.7 - 3.8 cm DOPPLER TR Peak Velocity 300.0 cm/s TR Peak Gradient 36.0 mmHg FINDINGS Left Ventricle Normal left ventricular cavity size. Normal left ventricular wall thickness. Left ventricular ejection fraction is estimated at 55 %. Right Ventricle Mildly increased right ventricular size. Normal right ventricular systolic function. Right Atrium Moderately increased right atrial size. Left Atrium Moderately increased left atrial size. Mitral Valve Morphologically normal mitral valve. Mild mitral valve regurgitation. Aortic Valve Aortic valve sclerosis without stenosis or regurgitation. Tricuspid Valve Morphologically normal tricuspid valve. Trace to mild tricuspid valve regurgitation. Tricuspid regurgitation velocities suggest a PAP of 46 mmHg. Pulmonic Valve Morphologically normal pulmonic valve without significant stenosis. There is no pulmonic regurgitation. Pericardium Normal pericardium without effusion. Aorta Normal ascending aorta dimension. Damir Enrique MD (Electronically Signed) Final Date: 23 September 2016 17:38
[2016-09-24] MEDS: SODIUM CHLORIDE 0.9% 1,000 ML IV SCH ×2 (04:24→12:38)
[2016-09-24 04:25] LABS: Basophils % 0.3 % (0.0-0.8); Eosinophils # 0.4 10*3/uL (0.0-0.87); Hemoglobin 10.4 GM/DL (12.0-16.0); Immature Granulocytes % 0.4 %; Immature Granulocytes Absolute 0.03 #; Lymphocytes # 1.3 10*3/uL (1.4-4.0); Lymphocytes % 17.3 % (21.3-54.2); Mean Corpuscular HGB Conc 33.5 GM/DL (32-36); Mean Corpuscular Hemoglobin 32 PG (27-34); Mean Corpuscular Volume 95.7 FL (87-102); Mean Platelet Volume 11.4 FL (9.6-12.0); Monocytes # 0.8 10*3/uL (0.11-0.8); Neutrophils # 4.9 10*3/uL (1.4-7.4); Platelet Count 176 T/CUMM (130-400); Red Blood Count 3.24 MC/CUMM (3.8-5.5); Red Cell Distribution Width 12.4 % (9.3-17.3); White Blood Count 7.4 T/CUMM (4-12)
[2016-09-24 04:54] LABS: Calcium 8.1 MG/DL (8.5-10.1); Osmolality,Calculated 291.7 MOS/KG (273-304); Potassium 3.8 MMOL/L (3.5-5.1)
[2016-09-24 04:59] LABS: Albumin 2.8 G/DL (3.4-5.0); Bilirubin,Direct 0.3 MG/DL (0.0-0.20); Bilirubin,Indirect 1.8 MG/DL (0.0-1.0); Bilirubin,Total 2.1 MG/DL (0.2-1.0); Total Protein 5.7 G/DL (6.4-8.3)
[2016-09-24] MEDS: INSULIN REGULAR 100 UNIT/ML SUBCUT SCH ×2 (08:13→12:38)
[2016-09-24] MEDS: OMEGA 3 ACID ETHYL ESTERS 1 GM CAPSULE PO SCH (08:42)
[2016-09-24] MEDS: ASPIRIN CHEW 81 MG TABLET PO SCH (08:42)
[2016-09-24] MEDS: TICAGRELOR 90 MG TABLET PO SCH (08:42)
--- NOTE | 2016-09-24 11:53 | Discharge Summary ---
Hospital Course - Hospital Course Hospital Course: The patient was admitted with an acute inferior myocardial infarction. 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 She underwent intervention and stenting. Postoperatively she did well except for hypotension. It is thought to be an RV infarct. She was given some fluids. Because the hypertension she is not started on a beta- fam or calcium fam. She is up and about today. Her blood pressure is better off this medication. She had infusion of dobutamine for short time. She is up and about and right groin puncture as well sealed. I did an echo with her persistent hypotension and it showed some RV enlargement, consistent with RV infarction. Her LVEF was normal. She is discharged to home. I emphasized to her the importance of taking the aspirin and Brilinta. When I see her back in clinic in a few weeks I will strongly consider restarting a low- dose of carvedilol, beta-fam. For now is contraindicated because of her hypotension. [See this note for the advanced practice nurse ]of note, because of her hypotension, he she is not on carvedilol, or the beta-fam. It is contraindicated. Also because of her ejection fraction is 50-55%, she does not have to be on an SILVESTRE inhibitor. It might be used later, but not now because she is hypotensive. - Time spent with patient Time with patient DS: Greater than 30 minutes Diagnosis - Discharge Diagnosis (1) ST elevation myocardial infarction (STEMI) of inferior wall Status: Resolved (2) Chronic renal insufficiency, stage II (mild) Status: Chronic (3) Diabetes Status: Chronic (4) Hypertension Status: Chronic (5) Hypercholesterolemia Status: Acute (6) Hypotension Status: Acute (7) Acute myocardial infarction of right ventricle Status: Acute Specialty Discharge - Follow Up or Referrals Follow up with: Damir Enrique MD [Physician] - (See the patient in clinic the week of 10/03 through 10/07) Discharge Plan - Discharge Data Disposition: Disch To Home/Self Care Condition at Discharge: Stable Discharge Diet: diabetic diet, low fat, low cholesterol Activity: no lifting (over 10 pounds or deep bending or straining for the next 2 weeks. If you tend to be constipated, take a medication to prevent straining with a BM which might result in the groin puncture site bleeding. Do not just lay around at home. Please get up and walk around intermittently during the day, particularly in the first few days after the heart cath. Ambulating every few hours would be good to prevent leg clots post cath.) Hygiene: no restrictions Weight Bearing at Discharge: full weight bearing Driving: not for - Discharge Medications New Aspirin Chew Tab 81 mg PO DAILY tablet Ticagrelor [Brilinta] 90 mg PO BID #60 tablet Nitroglycerin Sl Tab [Nitrostat] 0.4 mg SL Q5M PRN #25 tablet PRN Reason: Chest Pain Continue [place] 3 Acid Ethyl Esters [Lovaza] 1 gm PO BID glipiZIDE XL [Glucotrol Xl] 5 mg PO DAILY W/BREAKFAST Linagliptin [Tradjenta] 5 mg PO DAILY Atorvastatin [Lipitor] 40 mg PO DAILY Insulin Detemir [Levemir FlexPen] 60 unit SUBCUT BEDTIME Discontinued Lisinopril 20 mg PO BID - Follow Up or Referral - Forms/Instructions Additional Discharge Instructions: Check your blood pressure and pulse twice a day, record it, and bring it to the next clinic appointment for me to review. If systolic blood pressure is consistently greater than 130, call me and we will start carvedilol. If you do not get call back from the office to set up an appointment for follow-up by this next 09/28/16, then call my office and speak to my nurse to get it set up for follow-up the week 10/03 through 10/07. Give the patient one month free card for the Brilinta. She can then assess the cost of it for the next prescription discuss it with me on follow-up. Exam - Constitutional Vitals: Period Temp Pulse Resp BP Sys/Jade Pulse Ox Last 24 Hr 98 F-99.7 F 72-91 16-21 92-120/50-85 91-99 Exam: HEENT: Pupils equal, reactive to light and accommodation Neck: NoJVD or bruit. No tenderness or mass. Lungs clear to auscultation. No rhonchi, stridor, wheeze. Heart: Regular rhythm rate with normal S1 and S2. Apical S4. No irregular rhythm, murmur. Abdomen: Soft, nontender, hypoactive bowel sounds. No tenderness, firm, guarding , distended Spine/extremities: No clubbing, cyanosis, or edema. RFA cath site with minimal bruising, no hematoma or bruit present. Neuro: Nonfocal. Awake and alert. Psych: No depression or anxiety Femoral pulses are 3-4+. Dorsalis pedis and posterior tibial pulses 2+. Discharge Results Procedures and tests throughout hospitalization: Pending Orders 09/25/16 04:00 BMP w/ Mg [Basic Metabolic Panel w/Mg] IN AM CBC [Comp Blood Count Auto Diff] IN AM 09/26/16 04:00 BMP w/ Mg [Basic Metabolic Panel w/Mg] IN AM CBC [Comp Blood Count Auto Diff] IN AM Labs on day of discharge: Labs from last 24 hours 09/24/16 09/24/16 09/24/16 07:22 03:58 03:58 WBC 7.4 RBC 3.24 L Hgb 10.4 L Hct 31.0 L MCV 95.7 MCH 32 MCHC 33.5 RDW 12.4 Plt Count 176 MPV 11.4 Neut % (Auto) 66.0 Lymph % (Auto) 17.3 L [place] % (Auto) 11.0 Eos % (Auto) 5.0 Baso % (Auto) 0.3 Neut # (Auto) 4.9 Lymph # (Auto) 1.3 L [place] # (Auto) 0.8 Eos # (Auto) 0.4 Baso # (Auto) 0.0 Immature Gran % 0.4 Nucleated RBC % 0.0 Immature Gran # 0.03 Nucleated RBCs # 0.00 Sodium 145 Potassium 3.8 Chloride 112 H Carbon Dioxide 24 Anion Gap 12.8 BUN 16 Creatinine 0.90 GFR Calculation 65 BUN/Creatinine Ratio 17.00 Glucose 146 H POC Glucose 147 H Calculated Osmolality 291.7 Calcium 8.1 L Magnesium 2.0 Total Bilirubin Direct Bilirubin Indirect Bilirubin AST ALT Alkaline Phosphatase Total Protein Albumin 09/24/16 09/23/16 09/23/16 03:58 19:29 16:01 WBC RBC Hgb Hct MCV MCH MCHC RDW Plt Count MPV Neut % (Auto) Lymph % (Auto) [place] % (Auto) Eos % (Auto) Baso % (Auto) Neut # (Auto) Lymph # (Auto) [place] # (Auto) Eos # (Auto) Baso # (Auto) Immature Gran % Nucleated RBC % Immature Gran # Nucleated RBCs # Sodium Potassium Chloride Carbon Dioxide Anion Gap BUN Creatinine GFR Calculation BUN/Creatinine Ratio Glucose POC Glucose 126 H 123 H Calculated Osmolality Calcium Magnesium Total Bilirubin 2.10 H Direct Bilirubin 0.30 H Indirect Bilirubin 1.8 H AST 49 H ALT 42 Alkaline Phosphatase 104 Total Protein 5.7 L Albumin 2.8 L DS: Provider Date of admission: 09/21/16 06:25 Primary care physician: Kevin Tian DO Attending physician on admission: Damir Enrique MD Consults: 09/21/16 07:20 Consult to Pharmacy [CONS] Routine Reason for Pharmacy Consult: Adjust Meds Renal Funct Discharging clinician: Damir Enrique MD
[2016-09-24 12:25] VITALS: BP 99/65
== END 2016-09-24 13:20 | disposition home or self-care (01) | DRG 247 ==
LOC: N.ED 04:10 → N.ICU 05:16 → N.EDINP 06:25 → N.ICU 07:01 → N.TELEN 09-23 18:31
PROVIDERS: ADMIT Internal Medicine Cardiovascular Disease; ATTEND Internal Medicine Cardiovascular Disease
PROC: CLCCHCL (ICD-10-PCS; 2016-09-21 05:45)